=== PATIENT | male | born 1985 | race Caucasian/White ===

== ENCOUNTER 2018-07-02 19:30 | Emergency (ER) | payer SELFPAY ==
[~2018-07-02] VITALS: Ht 180.3 cm; Wt 83.9 kg
[2018-07-02 19:45] VITALS: BP 147/103
== END 2018-07-02 20:39 ==
LOC: ER 19:30
DX: S06.330A Contusion and laceration of cerebrum, unspecified, without loss of consciousness, initial encounter (principal); F10.129 Alcohol abuse with intoxication, unspecified; Y90.8 Blood alcohol level of 240 mg/100 ml or more; V49.49XA Driver injured in collision with other motor vehicles in traffic accident, initial encounter; Y93.89 Activity, other specified; Y92.410 Unspecified street and highway as the place of occurrence of the external cause; Y99.8 Other external cause status
CPT/HCPCS: 36415; 80320

== ENCOUNTER 2019-01-13 12:10 | Inpatient (IN) | payer BC ==
[~2019-01-13] VITALS: Ht 180.3 cm; Wt 87.0 kg
[2019-01-13] MEDS ORDERED: SODIUM CHLORIDE 0.9% 1,000 ML IV ONE ×2 (12:33)
[2019-01-13 13:42] LABS: Eosinophils # (auto) 0.1 uL
[2019-01-13 13:43] LABS: Basophils # (auto) 0 uL; Basophils % (auto) 0.3 % (0.0-2.0); Eosinophils % (auto) 0.3 % (0.0-7.0); Hemoglobin 17.8 g/dL (13.5-17.5); Lymphocytes # (auto) 2.2 uL; Mean Corpuscular Hemoglobin 35.6 pg (28.0-32.0); Mean Corpuscular Hgb Conc. 36.3 g/dL (32.0-36.0); Monocytes # (auto) 1.7 uL; Monocytes % (auto) 9.4 % (0.0-12.0); Neutrophils # (auto) 14.1 uL; Platelet Count (auto) 224 10^3/uL (140-450); Red Cell Distribution Width 12.8 % (11.8-14.3); White Blood Cell 18.1 10^3/uL (4.4-10.8)
[2019-01-13 13:57] LABS: Albumin 5.2 g/dL (3.4-5.0); Calcium 11.2 mg/dL (8.5-10.1); Potassium 3.6 mmol/L (3.5-5.1)
[2019-01-13 14:01] LABS: BUN/Creatinine Ratio 11.1; Total Protein 9.7 g/dL (6.4-8.2)
[2019-01-13 15:05] LABS: Urine Bacteria FEW /hpf (None Seen); Urine Blood TRACE /uL (Negative); Urine Hyaline Cast FEW /lpf (0 - 2); Urine Mucus FEW (None Seen); Urine Specific Gravity 1.012 (1.001-1.035); Urine WBC 2 /hpf (0 - 3)
[2019-01-13] MEDS ORDERED: SODIUM BICARB 50ML SYR 150 ML in SODIUM CHLORIDE 0.9% 1,000 ML IV ONE (15:30)
[2019-01-13 17:11] LABS: Alcohol, Urine < 3.0 mg/dL (0-5); Amphetamine Screen, Urine NEGATIVE (NEGATIVE); Barbiturate Scree,Urine NEGATIVE (NEGATIVE); Benzodiazephine Screen, Urine POSITIVE (NEGATIVE); Cannabinoid Screen, Urine POSITIVE (NEGATIVE); Cocaine Screen, Urine NEGATIVE (NEGATIVE); Opiate Scree,Urine NEGATIVE (NEGATIVE); Phencyclidine Screen, Urine NEGATIVE (NEGATIVE)
[2019-01-13] MEDS ORDERED: DEXTROSE (50%) 50ML SYRG IV PRN (18:00)
[2019-01-13] MEDS: chlordiazePOXIDE HCL 5 MG CAP PO SCH ×2 (18:00→22:27)
[2019-01-13] MEDS ORDERED: PROMETHAZINE HCL 25 MG/ML 1ML IV PRN (18:00)
[2019-01-13] MEDS ORDERED: traMADol HCL 50 MG TAB PO PRN (18:00)
[2019-01-13] MEDS: ACCU-CHEK COMFORT CURVE STRIP VI SCH (18:00)
[2019-01-13] MEDS ORDERED: ACETAMINOPHEN 500 MG TAB PO PRN (18:00)
[2019-01-13] MEDS ORDERED: THIAMINE 100mg/ml INJ (200mg/2ml VIAL) IV ONE (18:00)
[2019-01-13] MEDS ORDERED: MORPHINE SULF INJ 2 MG/ML SYRINGE 1ML IV PRN (18:00)
[2019-01-13] MEDS ORDERED: chlordiazePOXIDE HCL 25 MG CAP PO PRN (18:00)
[2019-01-13] MEDS: SODIUM CHLORIDE 0.9% 1,000 ML IV SCH (18:00)
[2019-01-13] MEDS ORDERED: MORPHINE SULFATE 4 MG/ML SYR/VIAL IV PRN (18:00)
[2019-01-13] MEDS ORDERED: LORazepam 0.5 MG TAB PO PRN (18:00)
[2019-01-13] MEDS ORDERED: NITROGLYCERIN 0.4 MG SL TAB SL PRN (18:00)
--- NOTE | 2019-01-13 19:40 | NUR ---
Telemetry admit from ER DENIS BERNAL admitted to Telemetry unit after SBAR received. Patient oriented to Jeanna Espinal, primary RN, unit, room, bed, and unit policies regarding patient care and visiting hours. Patient now on continuous telemetry monitoring, tele box # 18 and telemetry reading on arrival to unit is sinus rhythm 78 with bundle branch block. Patient placed on bedside oxygen, weighed by bedscale and encouraged to call if they need something. All questions and concerns addressed, patient verbalized understanding. Note:
[2019-01-13 20:02] LABS: CRP High Sensitivity 0.74 mg/dL (< 0.3)
[2019-01-13 20:35] VITALS: BP 133/80
[2019-01-13 22:00] VITALS: BP 133/85
[2019-01-13] MEDS: TEMAZEPAM 15 MG CAP PO PRN (23:30)
[2019-01-14] MEDS: ACCU-CHEK COMFORT CURVE STRIP VI SCH ×3 (00:23→11:51)
[2019-01-14] MEDS: SODIUM CHLORIDE 0.9% 1,000 ML IV SCH ×4 (00:53→19:41)
[2019-01-14 05:03] VITALS: BP 102/60
[2019-01-14 05:45] LABS: Basophils # (auto) 0 uL; Eosinophils # (auto) 0.1 uL; Lymphocytes # (auto) 2.1 uL; Mean Corpuscular Hemoglobin 35.6 pg (28.0-32.0); Nucleated Red Blood Cells % 0.1 %
[2019-01-14] MEDS: chlordiazePOXIDE HCL 5 MG CAP PO SCH ×2 (05:49→11:51)
[2019-01-14 05:51] LABS: Basophils % (auto) 0.3 % (0.0-2.0); Eosinophils % (auto) 1.6 % (0.0-7.0); Hematocrit 37.1 % (41.0-53.0); Hemoglobin 13.2 g/dL (13.5-17.5); Lymphocytes % (auto) 30.7 % (10.0-50.0); Mean Corpuscular Hgb Conc. 35.6 g/dL (32.0-36.0); Mean Corpuscular Volume 99.8 fL (80.0-100.0); Monocytes # (auto) 0.8 uL; Monocytes % (auto) 10.9 % (0.0-12.0); Neutrophils # (auto) 3.9 uL; Neutrophils % (auto) 56.5 % (37.0-80.0); Platelet Count (auto) 155 10^3/uL (140-450); Red Blood Cells 3.72 10^6/uL (4.5-5.90); Red Cell Distribution Width 12.4 % (11.8-14.3)
[2019-01-14 05:58] LABS: Albumin 3.2 g/dL (3.4-5.0); Calcium 7.8 mg/dL (8.5-10.1); Potassium 3.1 mmol/L (3.5-5.1)
[2019-01-14 06:01] LABS: BUN/Creatinine Ratio 18.6; Bilirubin, Total 0.9 mg/dL (0.2-1.0); Total Protein 6.1 g/dL (6.4-8.2)
--- NOTE | 2019-01-14 07:45 | NUR ---
Opening Shift Note Assumed care of patient, awake and alert, sitting up in bed eating breakfast. IV fluids running as ordered. No S/S of distress/SOB or pain. Instructed on POC and to call for assist PRN, will continue to monitor for changes Q1hr and PRN. NOTE: Patient asking about MD rounding, time of discharge, and getting medication prescription for depression. Educated patient on policies and needs at discharge. Patient verbalized his "mom came to visit" and found patient PCP in [place]. Will discuss pt concerns with MD upon rounds.
[2019-01-14 09:00] VITALS: BP 106/65
[2019-01-14] MEDS: PANTOPRAZOLE 40 MG TAB PO SCH (09:41)
[2019-01-14] MEDS: THIAMINE 100mg/ml INJ (200mg/2ml VIAL) IV SCH (09:41)
--- NOTE | 2019-01-14 10:43 | NUR ---
NUTRITION Discussed diet options and orders with patient and patients Mom at bedside. Phone call placed to kitchen regarding patients food options.
--- NOTE | 2019-01-14 10:46 | NUR ---
AMBULATION/HYGIENE Patient sitting in bedside chair. Hygiene supplies provided. Encouraged ambulation. Patient verbalized understanding.
--- NOTE | 2019-01-14 12:39 | NUR ---
ROUNDING Dr Gates rounding on patient with primary RN. Patients Mom at bedside. Discussed plan of care, medications and discharge planning. MD will enter orders.
--- NOTE | 2019-01-14 12:40 | NUR ---
MED SURG Patient downgraded to MS, nurse discharge planner made aware.
--- NOTE | 2019-01-14 12:41 | NUR ---
WORK NOTE Patient would like work note at discharge.
[2019-01-14] MEDS ORDERED: FLUoxetine HCL 20 MG CAP PO ONE (12:45)
[2019-01-14] MEDS ORDERED: POTASSIUM CHL 20 Meq TABLET PO ONE (12:45)
[2019-01-14] MEDS ORDERED: LORazepam 0.5 MG TAB PO PRN (12:45)
[2019-01-14 13:00] VITALS: BP 141/84
--- NOTE | 2019-01-14 14:54 | NUR ---
SMOKING AMA, PATIENT EDUCATED ON SMOKING POLICY AND RISKS. SMOKING AMA SIGNED WITH PATIENT AND PRIMARY RN. Signed: 01/14/19 at 1456 by LYNDA DEAL SN <Co-Signature Required> Co-Signed: 01/14/19 at 1456 by Pattie Saleh RN RN
[2019-01-14 17:00] VITALS: BP 124/77
--- NOTE | 2019-01-14 20:07 | NUR ---
PCP INFO FROM PATIENT: DR. KAREN HULL [address] [facility], [id number]
[2019-01-14 21:58] VITALS: BP 143/83
[2019-01-14] MEDS: TEMAZEPAM 15 MG CAP PO PRN (23:17)
[2019-01-15] MEDS: SODIUM CHLORIDE 0.9% 1,000 ML IV SCH ×2 (03:50→10:28)
[2019-01-15 05:00] VITALS: BP 112/68
[2019-01-15 06:28] LABS: BUN/Creatinine Ratio 10.8; Calcium 7.9 mg/dL (8.5-10.1); Magnesium 2.1 mg/dL (1.6-2.6)
--- NOTE | 2019-01-15 07:50 | NUR ---
Opening Shift Note Assumed care of patient, awake and alert, patients Mom at bedside. No S/S of distress/SOB or pain. Instructed on POC and to call for assist PRN, will continue to monitor for changes Q1hr and PRN.
--- NOTE | 2019-01-15 08:20 | NUR ---
Patient asking to be disconnected from IV to go to smoking area. AMA in chart. Will monitor for patient return.
[2019-01-15 08:49] VITALS: BP 128/74
--- NOTE | 2019-01-15 08:50 | NUR ---
Return to unit Patient connected to IV as ordered. No distress of complaints of pain.
[2019-01-15] MEDS ORDERED: FLUoxetine HCL 20 MG CAP PO SCH (10:00)
[2019-01-15] MEDS: PANTOPRAZOLE 40 MG TAB PO SCH (10:28)
[2019-01-15] MEDS: THIAMINE 100mg/ml INJ (200mg/2ml VIAL) IV SCH (10:28)
--- NOTE | 2019-01-15 12:04 | NUR ---
AMBULATION Patient ambulating laps around nursing station.
[2019-01-15 13:00] VITALS: BP 148/96
--- NOTE | 2019-01-15 14:55 | NUR ---
SOCIAL SERVICE CONSULT Patient does not want to wait for social service consult to discharge. Patient found own PCP and states he made appointment 02/15/2019, information provided. Will give patient information on ETOH abuse.
--- NOTE | 2019-01-15 15:21 | NUR ---
Discharge instructions given as ordered. Encourage to follow up with PMD as instructed. All questions and concerns addressed. Patient verbalized understanding. Medication reconciliation form completed and copy given to patient. IV removed with catheter intact, pressure dressing applied. Patient ambulated off unit with all personal belongings. No distress noted at time of departure.
== END 2019-01-15 15:19 | disposition home or self-care (01) | DRG 683 ==
LOC: ER 12:10 → TELE 12:11 → TELE-WESTW 19:30
PROVIDERS: ADMIT Internal Medicine; ATTEND Internal Medicine
DX: N17.9 Acute kidney failure, unspecified (principal); M62.82 Rhabdomyolysis; E87.1 Hypo-osmolality and hyponatremia; E86.0 Dehydration; F12.90 Cannabis use, unspecified, uncomplicated; F17.210 Nicotine dependence, cigarettes, uncomplicated; E83.52 Hypercalcemia; F32.9 Major depressive disorder, single episode, unspecified; F41.9 Anxiety disorder, unspecified; K21.9 Gastro-esophageal reflux disease without esophagitis; T67.5XXA Heat exhaustion, unspecified, initial encounter; X30.XXXA Exposure to excessive natural heat, initial encounter; Z80.3 Family history of malignant neoplasm of breast; Z80.7 Family history of other malignant neoplasms of lymphoid, hematopoietic and related tissues; Z82.49 Family history of ischemic heart disease and other diseases of the circulatory system; Z83.3 Family history of diabetes mellitus
CPT/HCPCS: 36415; 71045; 74176; 76700; 80048; 80053; 80307; 81001; 82150; 82550; 82962; 83036; 83690; 83735; 84155; 84156; 84165; 84166; 85025; 85652; 86141; 87040; 87086; 96365; 96375; G0378

== ENCOUNTER 2020-09-21 17:21 | Emergency (ER) | payer BC ==
[~2020-09-21] VITALS: Ht 180.3 cm; Wt 84.8 kg
[2020-09-21] MEDS ORDERED: SODIUM CHLORIDE 0.9% 1,000 ML IV ONE (18:00)
[2020-09-21] MEDS ORDERED: cefTRIAXone 1GM/50ML D5W 50 ML IV ONE (18:15)
[2020-09-21] MEDS ORDERED: TETANUS-DIPTH-ACEL PERTUSSIS 0.5ML SYR Tdap IM ONE (18:15)
[2020-09-21] MEDS ORDERED: MORPHINE SULFATE 4 MG/ML SYR/VIAL IV ONE (18:45)
[2020-09-21] MEDS ORDERED: ONDANSETRON HCL 4 MG/2 ML VIAL IV ONE (18:45)
[2020-09-21 19:43] VITALS: BP 119/80
== END 2020-09-21 21:03 | disposition home or self-care (01) ==
LOC: ER 17:21 → EDBD 17:21 → ER 21:03
DX: S81.012A Laceration without foreign body, left knee, initial encounter (principal); F17.210 Nicotine dependence, cigarettes, uncomplicated; X58.XXXA Exposure to other specified factors, initial encounter; Y93.89 Activity, other specified; Y92.89 Other specified places as the place of occurrence of the external cause; Y99.8 Other external cause status
CPT/HCPCS: 73700; 90471; 90715; 96365; 96375; 99284; J0696; J2270; J2405; 29505